=== PATIENT | male | born 1980 | race African-American/Black ===

== ENCOUNTER 2023-05-30 11:13 | Emergency (ER) | payer SELFPAY | END 2023-05-30 13:48 | disposition home or self-care (01) | LOC: CSHERS 11:13 | DX: M79.18 Myalgia, other site (principal); F17.210 Nicotine dependence, cigarettes, uncomplicated; V89.2XXA Person injured in unspecified motor-vehicle accident, traffic, initial encounter | CPT/HCPCS: 99283 ==

== ENCOUNTER 2024-02-16 18:10 | Emergency (ER) | payer SELFPAY | END 2024-02-16 19:06 | disposition home or self-care (01) | LOC: CSHERS 18:10 | DX: H60.92 Unspecified otitis externa, left ear (principal); F17.210 Nicotine dependence, cigarettes, uncomplicated | CPT/HCPCS: 99282 ==